=== PATIENT | female | born 1975 | race Caucasian/White ===

== ENCOUNTER → 2021-01-09 13:41 | Outpatient (CLI) | payer OTHER, SELFPAY ==
--- NOTE | ~2021-01-09 | US_ITS ---
EXAMINATION: US pelvic complete w TV EXAM DATE: 01/09/2021 14:17 INDICATION: Abnormal uterine bleeding. TECHNIQUE: Pelvic transabdominal and transvaginal sonogram was performed. There are multiple graysca le and Doppler images available for interpretation. There is no prior study for comparison. FINDINGS: Uterus measures 8.7 x 4.9 x 6.0 cm, and is morphologically normal. Endometrial stripe natalya sures 6 mm, within normal limits. There is no free pelvic fluid. Right adnexa: The ovary measures 2.2 x 1.2 x 1.3 cm and is morphologically normal. Ovarian vascular f low confirmed. Left adnexa: The ovary measures 3.2 x 3.5 x 2.9 cm and is morphologically normal. Ovarian vascular fl ow confirmed. IMPRESSION: 1. Unremarkable pelvic ultrasound exam. Reviewed, dictated and finalized at location G.
== END ==
PROVIDERS: Visit Provider Nurse Practitioner Women's Health
DX: N93.9 Abnormal uterine and vaginal bleeding, unspecified (principal)
CPT/HCPCS: 76830; 76856

== ENCOUNTER 2021-05-22 09:07 | Emergency (ER) | payer OTHER, SELFPAY ==
[2021-05-22 09:19] VITALS: BP 128/88; PULSE 92; RESP 18; TEMP 36.6; O2SAT 100
--- NOTE | 2021-05-22 09:45 | ED.FEMALEGU ---
HPI - Female Genitourinary General Chief complaint: Urogenital-Female Stated complaint: uti Source: patient and RN notes reviewed Limitations: no limitations History of Present Illness HPI Narrative: The patient, previously healthy, presents with urinary problems. Patient states she has a shorter couple day history of urinary frequency, urgency and dysuria. No vomiting/diarrhea, hematuria like prior kidney stones she had years ago. Symptoms are mild like prior UTI, worse with micturition Related Data Allergies Allergy/AdvReac Type Severity Reaction Status Date / Time No Known Allergies Allergy Verified 08/05/12 08:02 Review of Systems Review of Systems: General/Constitutional: No weight loss,fever Eyes: N0: Redness,discharge Ears/Nose/Throat: No: Epistaxis,ear discharge Respiratory: Denies: Hemoptysis Gastrointestinal: No Vomiting, Bleeding-rectal Skin: No Lumps, eruption Neurologic: No Focal Weakness,Sz Hematologic: Denies: Petechiae/Purpura Psychiatric: No: Suicida ideationl All Other Systems: Reviewed and Negative PMFSH Comments At time of signature, agree with nursing past medical, surgical, social and family history. There is no relevant family history pertinent to the presenting complaint Exam Narrative: General Appearance: Well appearing, Conjunctiva clear Mouth/Throat: Normal appearing, Normal lips Neck: Supple Respiratory: Airway patent, No respiratory distress Cardiovascular: RRR Abdomen: Soft, Non-tender, Musculoskeletal: Full ROM Skin: Warm, Dry Neurological: A&O x3, Normal affect Course Vital Signs Vital signs: Vital Signs Temperature 97.8 F 05/22/21 09:19 Pulse Rate 92 05/22/21 09:19 Respiratory Rate 18 05/22/21 09:19 Blood Pressure 128/88 05/22/21 09:19 Pulse Oximetry 100 05/22/21 09:19 Temperature 97.8 F 05/22/21 09:19 Pulse Rate 92 05/22/21 09:19 Respiratory Rate 18 05/22/21 09:19 Blood Pressure 128/88 05/22/21 09:19 Pulse Oximetry 100 05/22/21 09:19 MDM - Female Genitourinary Lab Data Labs: Urine Glucose Negative Reference Range: Negative Urine Bilirubin Negative Reference Range: Negative Urine Ketone Negative Reference Range: Negative Urine Specific [place] 1.025 Reference Range:1.001-1.035 Urine Blood 2+ Reference Range: Negative * * Urine pH 6.5 Reference Range: 5.0-9.0 Urine Protein Negative Reference Range: Negative Urine Urobilinogen 0.2 Reference Range: 0.2-1.0 Urine Nitrate Negative Reference Range: Negative Urine Leukocyte Negative Reference Range: Negative Urine Color Yellow Reference Range: Yellow Urine Characteristics Cloudy Discharge Plan Discharge Clinical Impression: Urinary tract infection Patient Disposition: Home, Self-Care Condition: Stable Instructions: Urinary Tract Infection in Women (ED) Prescriptions: New sulfamethoxazole-trimethoprim [Bactrim DS] 800-160 mg tablet 1 tablet PO Q12H 7 Days Qty: 14 RF: 0 phenazopyridine [Pyridium] 100 mg tablet 100 mg PO BID PRN (Reason: pain) Qty: 10 RF: 0 Follow-up/Referrals:
== END 2021-05-22 09:52 | disposition home or self-care (01) ==
PROVIDERS: Emergency Provider Emergency Medicine
DX: N39.0 Urinary tract infection, site not specified (principal)
CPT/HCPCS: 81003; 99213; G0463